=== PATIENT | female | born 1950 | race Caucasian/White ===

== ENCOUNTER 2020-05-01 10:58 | Emergency (ER) | payer OTHER ==
[~2020-05-01] VITALS: Ht 152.4 cm; Wt 65.9 kg
[~2020-05-01 10:58] MED LIST: AMLO10TA PO; ASPI-1093 PO; GLIP10TA3 PO; LEVO500T6 PO; LISI-487 PO; METF1000 PO; SIMV40TA1 PO
[2020-05-01 11:13] VITALS: BP 187/72
--- NOTE | 2020-05-01 11:25 | NUR ---
Patient ambulated to bed 6. RN evaluating patient at bedside.
--- NOTE | 2020-05-01 11:29 | NUR ---
VA: RIGHT EYE 20/100, LEFT EYE 20/70, BOTH EYE 20/70
[2020-05-01] MEDS ORDERED: TETRACAINE HCL/PF 0.5% OPTH 4 ML BTL OP ONE (11:35)
[2020-05-01] MEDS ORDERED: ACYCLOVIR 700 MG in NACL 0.9% 100 ML IV ONE (11:35)
[2020-05-01] MEDS ORDERED: FLUORESCEIN OPTH STRIP 1 MG OP ONE (11:35)
--- NOTE | 2020-05-01 11:35 | NUR ---
69 y/o female brought in by daughter from home with c/c rash and blister to left face. Pt's daughter is repair mechanic and states that on 04/29, a rash developed to the left side of her face and progressively worsen with blisters. Blisters noted under left eye, left of ear, and on upper lip. Pt's daughter states she was concern because it was causing her pain. Pt states associated dizziness. Pt denies headache, shortness of breath, nausea/vomiting, blurry vision, fever/chills, cold like symptoms. Pt placed onto diagnostic cardiac sonographer. Bed locked at lowest position, side rails x 1, call light in reach. VA: RIGHT EYE 20/100, LEFT EYE 20/70, BOTH EYE 20/70 PMH: DM, HTN, ARTHRITIS, HEART SURGERY 2011 & 2013, RIGHT LOWER LEG BLOOD CLOT MED: INSULIN, BLOOD THINER NKA
--- NOTE | 2020-05-01 11:45 | NUR ---
Dr. Banks is evaluating the patient at bedside.
[2020-05-01] MEDS ORDERED: ACYCLOVIR 500 MG VIAL IV ONE (11:58)
--- NOTE | 2020-05-01 12:10 | NUR ---
Lab at bedside
--- NOTE | 2020-05-01 12:11 | NUR ---
Alison swab collected, walked to lab and handed to kait Miranda tech.
[2020-05-01 12:20] LABS: BASOPHILS # (AUTO) 0.1 K/uL (0.00-0.22); EOSINOPHILS # (AUTO) 0.2 K/uL (0-0.4); EOSINOPHILS % (AUTO) 3.2 % (0.0-4.0); HEMATOCRIT 43.1 % (36-48); HEMOGLOBIN 14.6 g/dL (12.0-16.0); LYMPHOCYTES # (AUTO) 1.5 K/uL (2.5-16.5); MEAN CORPUSCULAR HEMOGLOBIN 29 pg (27-31); MEAN CORPUSCULAR HGB CONC 34 g/dL (33-37); MEAN CORPUSCULAR VOLUME 86.2 fL (80-94); MONOCYTES # (AUTO) 0.7 K/uL (0.8-1.0); NEUTROPHILS # (AUTO) 3.5 K/uL (1.8-7.7); NEUTROPHILS % (AUTO) 58.8 % (42.2-75.2); PLATELET COUNT (AUTO) 176 K/uL (140-450); RED BLOOD CELL COUNT(AUTO) 4.99 MIL/uL (4.20-5.40); RED CELL DISTRIBUTION WIDTH 13.6 % (11.6-13.7); WHITE BLOOD COUNT (AUTO) 5.9 K/uL (4.8-10.8)
[2020-05-01 12:56] LABS: ANION GAP 13.3 (8-16); CARBON DIOXIDE 27.4 mmol/L (21-32); CREATININE 0.9 mg/dL (0.6-1.3); POTASSIUM 4.7 mmol/L (3.5-5.1); TOTAL BILIRUBIN 0.5 mg/dL (0.0-1.0)
--- NOTE | 2020-05-01 13:54 | NUR ---
Spoke with Mikel from [facility] and answered screening questions. Mikel advised to have family understand that this will be a continuity of care and will require follow-up appointments, and not a one time visit. Daughter advised and translated for mom.
--- NOTE | 2020-05-01 14:35 | NUR ---
Pt resting in position of comfort. monitor technician in place. Bed locked in lowest position, side rails x 1, call light in reach. Daughter at bedside.
--- NOTE | 2020-05-01 15:00 | NUR ---
Consent signed for transport to [facility] to ED. Daughter at bedside to acknowledge/translate consent form. Signature obtained.
--- NOTE | 2020-05-01 15:20 | NUR ---
Report given to EDOUARD Robins via telephone. Advised of [facility]'s ETA of 1600.
--- NOTE | 2020-05-01 15:25 | NUR ---
Pt requested information of visitation policy at [facility]. Spoke with bilingual inside sales representative and advised no visitors allowed. Daughter/pt made aware.
[2020-05-01] MEDS ORDERED: MORPHINE SULFATE 4 MG/ML SYR IVP ONE (15:40)
[2020-05-01] MEDS ORDERED: ONDANSETRON 4 MG/2 ML VIAL IVP ONE (15:40)
--- NOTE | 2020-05-01 15:40 | NUR ---
Pt's daughter states pain 10/10, request for pain meds. ERMD made aware and placed orders.
--- NOTE | 2020-05-01 15:42 | NUR ---
Inputted incorrect quantity amount from [employer] for Morphine 4mg/mL while dispensing medication. Incorrect quantity inputted: 18. Correct quantity: 17. Charge nurse notified.
--- NOTE | 2020-05-01 15:52 | NUR ---
Pt resting in position of comfort. Pain medication given per orders. color television console monitor in place. Bed locked in lowest position, side rails x 1, call light in reach. Daughter at bedside.
--- NOTE | 2020-05-01 16:06 | NUR ---
Pt resting in semi-fowlers in position of comfort. Daughter at bedside translating. Pt states pain 3/10 and no nausea at this time. All pt needs met at this time. desk monitor in place. Bed locked in lowest position, side rails x 1, call light in reach.
--- NOTE | 2020-05-01 17:07 | NUR ---
[facility] at bedside to transport the patient to [facility] ER.
[2020-05-01 17:10] VITALS: BP 147/60
--- NOTE | 2020-05-01 17:10 | NUR ---
Patient to be transferred to [facility] ED. Is being transferred due to higher level of care. Receiving facility has accepting physician and available space. ER physician has signed transfer form. Patient or responsible green party has agreed to transfer and signed form. Patient belongings inventoried and will be sent with patient. Copy of nursing notes, lab reports, EKG, Physicians Orders and X-rays to be sent with patient. Report called to Julienne at receiving facility. [facility] ambulance service has been called for transfer. ETA is 1 hour.
== END 2020-05-01 17:10 | disposition designated cancer center or children's hospital (05) ==
LOC: MED 10:58
DX: B02.30 Zoster ocular disease, unspecified (principal); Z20.828 Contact with and (suspected) exposure to other viral communicable diseases; E11.9 Type 2 diabetes mellitus without complications; I10 Essential (primary) hypertension; E07.9 Disorder of thyroid, unspecified; Z79.899 Other long term (current) drug therapy
CPT/HCPCS: 36415; 80053; 82948; 85025; 87426; 96365; 96375; 99285; J0133; J2270; J2405

== ENCOUNTER 2020-06-15 18:19 | Emergency (ER) | payer OTHER ==
[~2020-06-15] VITALS: Ht 152.4 cm; Wt 68.2 kg
[2020-06-15 18:40] VITALS: BP 147/55
[2020-06-15] MEDS ORDERED: cefTRIAXone 1,000 MG in DEXT 5% MINI-BAG PLUS 50 ML IV ONE (18:50)
--- NOTE | 2020-06-15 18:54 | NUR ---
URINE & COVID MARCEL SWAB COLLECTED.
--- NOTE | 2020-06-15 19:11 | NUR ---
MARCEL AND UA SAMPLE GIVEN TO NURSING HOME ASSISTANT ADMINISTRATOR.
--- NOTE | 2020-06-15 19:13 | NUR ---
PATIENT RETURNED FROM XRAY VIA W/C. LAB DRAWING BLOOD IN A.
[2020-06-15 19:32] LABS: APPEARANCE,URINE CLEAR (CLEAR); BILIRUBIN,URINE NEGATIVE (NEGATIVE); BLOOD, URINE NEGATIVE (NEGATIVE); COLOR,URINE YELLOW (YELLOW); LEUKOCYTE ESTERASE ,URINE TRACE (NEGATIVE); NITRITE, URINE NEGATIVE (NEGATIVE); UGLUCOSE 2+ (NEGATIVE)
[2020-06-15 19:33] LABS: BASOPHILS # (AUTO) 0.1 K/uL (0.00-0.22); BASOPHILS % (AUTO) 0.9 % (0.0-2.0); EOSINOPHILS # (AUTO) 0.2 K/uL (0-0.4); EOSINOPHILS % (AUTO) 3.2 % (0.0-4.0); HEMATOCRIT 35.8 % (36-48); HEMOGLOBIN 12.3 g/dL (12.0-16.0); LYMPHOCYTES # (AUTO) 1.7 K/uL (2.5-16.5); LYMPHOCYTES % (AUTO) 23.1 % (20.5-51.1); MEAN CORPUSCULAR HEMOGLOBIN 31 pg (27-31); MEAN CORPUSCULAR HGB CONC 35 g/dL (33-37); MEAN CORPUSCULAR VOLUME 88.4 fL (80-94); MONOCYTES # (AUTO) 0.4 K/uL (0.8-1.0); NEUTROPHILS # (AUTO) 4.8 K/uL (1.8-7.7); NEUTROPHILS % (AUTO) 66.8 % (42.2-75.2); PLATELET COUNT (AUTO) 264 K/uL (140-450); RED BLOOD CELL COUNT(AUTO) 4.05 MIL/uL (4.20-5.40); RED CELL DISTRIBUTION WIDTH 15.1 % (11.6-13.7); WHITE BLOOD COUNT (AUTO) 7.2 K/uL (4.8-10.8)
--- NOTE | 2020-06-15 19:43 | NUR ---
PATIENT AMBULATED FROM LOBBY TO BED 7.
[2020-06-15 19:52] LABS: ALBUMIN 3.8 g/dL (3.4-5.0); ANION GAP 12.7 (8-16); CARBON DIOXIDE 28.3 mmol/L (21-32); TOTAL BILIRUBIN 0.3 mg/dL (0.0-1.0)
[2020-06-15] MEDS ORDERED: MORPHINE SULFATE 4 MG/ML SYR IM ONE (20:00)
[2020-06-15 20:01] LABS: RBC,URINE 0-5 /HPF (0-5)
[2020-06-15] MEDS ORDERED: GABA300C PO (21:05)
[2020-06-15 21:11] VITALS: BP 141/56
--- NOTE | 2020-06-15 21:11 | NUR ---
Patient discharged with v/s stable. Written and verbal after care instructions given and explained. Patient alert, oriented and verbalized understanding of instructions. Ambulatory with steady gait. All questions addressed prior to discharge. ID band removed. Patient advised to follow up with PMD. Rx of GABAPENTIN given. Patient educated on indication of medication including possible reaction and side effects. Opportunity to ask questions provided and answered.
== END 2020-06-15 21:11 | disposition home or self-care (01) ==
LOC: MED 18:19
DX: I70.211 Atherosclerosis of native arteries of extremities with intermittent claudication, right leg (principal); E11.9 Type 2 diabetes mellitus without complications; I10 Essential (primary) hypertension; E07.9 Disorder of thyroid, unspecified; Z79.899 Other long term (current) drug therapy; Z20.822 Contact with and (suspected) exposure to COVID-19
CPT/HCPCS: 36415; 71045; 73630; 80053; 81001; 83880; 84484; 85025; 87040; 87086; 87426; 93005; 96372; 99285; J2270

== ENCOUNTER 2020-11-16 17:12 | Emergency (ER) | payer OTHER ==
[~2020-11-16] VITALS: Ht 157.5 cm; Wt 63.5 kg
[~2020-11-16 17:12] MED LIST changes: +GABA300C PO
[2020-11-16 17:46] VITALS: BP 143/47
--- NOTE | 2020-11-16 17:52 | NUR ---
PT TO LOBBY.
--- NOTE | 2020-11-16 18:50 | NUR ---
PT WALKED TO BED 7.
--- NOTE | 2020-11-16 19:01 | NUR ---
69 YEAR OLD FEMALE COMPLAINS OF DIZZINESS X 1 WEEK. PT DENIES SYNCOPE EPISODE. PT DENIES N/V/D. PT AOX4, BREATHING EVEN AND UNLABORED, SKIN WARM AND DRY. BED IN LOWEST POSITION, LOCKED, BED RAIL UPX1. PMH - HTN, DM2, HLD, CAD ALLERGIES - NKA
[2020-11-16] MEDS ORDERED: NACL 0.9% 1,000 ML IV ONE (19:05)
[2020-11-16 19:21] LABS: BASOPHILS # (AUTO) 0.1 K/uL (0.00-0.22); BASOPHILS % (AUTO) 0.8 % (0.0-2.0); EOSINOPHILS # (AUTO) 0.2 K/uL (0-0.4); EOSINOPHILS % (AUTO) 2.8 % (0.0-4.0); HEMATOCRIT 20.2 % (36-48); LYMPHOCYTES # (AUTO) 2.3 K/uL (2.5-16.5); LYMPHOCYTES % (AUTO) 35.1 % (20.5-51.1); MEAN CORPUSCULAR HEMOGLOBIN 23 pg (27-31); MEAN CORPUSCULAR HGB CONC 31 g/dL (33-37); MEAN CORPUSCULAR VOLUME 73.6 fL (80-94); MONOCYTES # (AUTO) 0.6 K/uL (0.8-1.0); MONOCYTES % (AUTO) 8.6 % (1.7-9.3); NEUTROPHILS # (AUTO) 3.4 K/uL (1.8-7.7); NEUTROPHILS % (AUTO) 52.7 % (42.2-75.2); PLATELET COUNT (AUTO) 239 K/uL (140-450); RED BLOOD CELL COUNT(AUTO) 2.74 MIL/uL (4.20-5.40); WHITE BLOOD COUNT (AUTO) 6.4 K/uL (4.8-10.8)
--- NOTE | 2020-11-16 19:25 | NUR ---
RECEIVED REPORT FROM EDOUARD PARIS. TRANSFER OF CARE AT THIS TIME.
[2020-11-16 19:35] LABS: HEMOGLOBIN 6.3 g/dL (12.0-16.0)
--- NOTE | 2020-11-16 19:42 | NUR ---
PATIENT TAKEN TO RAD VIA W/C.
[2020-11-16 19:47] LABS: ALBUMIN 3.3 g/dL (3.4-5.0); CARBON DIOXIDE 27.2 mmol/L (21-32); CREATININE 0.8 mg/dL (0.6-1.3); POTASSIUM 4.2 mmol/L (3.5-5.1); TOTAL BILIRUBIN 0.2 mg/dL (0.0-1.0)
[2020-11-16 20:08] LABS: PROTHROMBIN TIME 9.2 secs (10.8-13.4)
--- NOTE | 2020-11-16 20:35 | NUR ---
LINDSEY BELCHER AT BEDSIDE FOR ULTRASOUND IV PLACEMENT
--- NOTE | 2020-11-16 21:15 | NUR ---
PT. TAKEN TO CT VIA W/C
--- NOTE | 2020-11-16 22:25 | NUR ---
Consent signed per patient agreeing to administration of blood. Blood has been type and crossmatched. Blood sent from blood bank. Information on unit of blood checked against patient wristband at bedside by two nurses. All information matches. Patient or responsible alliance party informed of potential complications associated with blood transfusion. Informed of possible transfusion reaction symptoms. Aware of need to notify nurse at once of itching, shortness of breath, flushing, feeling of impending doom, or other symptoms not previously present. Vital signs taken within 5 minutes prior to initiation of transfusion. RN will remain with patient for first 15 minutes of transfusion at which time vital signs will be re-assessed.
--- NOTE | 2020-11-16 22:37 | NUR ---
MARCEL SWAB COLLECTED AND TAKEN TO LAB.
--- NOTE | 2020-11-16 23:12 | NUR ---
PT. LAYING COMFORTABLY IN SUPINE POSITION, VOICES NO COMPLAINTS AT THIS TIME. WILL CONTINUE TO MONITOR
--- NOTE | 2020-11-17 01:45 | NUR ---
PER LINDSEY MERCHANT, D/C ORTHOSTATIC VITAL SIGNS AT THIS TIME.
--- NOTE | 2020-11-17 02:55 | NUR ---
Patient to be transferred to [facility]. Is being transferred due to HIGHER LEVEL OF CARE. Receiving facility has accepting physician and available space. ER physician has signed transfer form. Patient or responsible libertarian has agreed to transfer and signed form. Patient belongings inventoried and will be sent with patient. Copy of nursing notes, lab reports, EKG, Physicians Orders and X-rays to be sent with patient. Report called to EDOUARD SAUER at receiving facility. ambulance service has been called for transfer. ETA is 2 HRS.
--- NOTE | 2020-11-17 02:55 | NUR ---
CALLED REPORT TO EDOUARD SAUER (TELEMETRY UNIT STATION 2) WITH ACCEPTING DR. NATHAN AND ADMITTING DIAGNOSIS OF BRAIN MASS AND SYMPTOMATIC ANEMIA. PT. WILL GO TO ROOM 329B. ETA FOR TRANSPORT IS 2 HRS.
[2020-11-17] MEDS ORDERED: CARV3.122 PO (06:24)
[2020-11-17] MEDS ORDERED: APIX5TAB PO (06:24)
[2020-11-17] MEDS ORDERED: LOSA100T1 PO (06:24)
[2020-11-17] MEDS ORDERED: ATOR10TA PO (06:24)
[2020-11-17] MEDS ORDERED: CLOP300T2 PO (06:24)
--- NOTE | 2020-11-17 07:12 | NUR ---
REPORT GIVEN TO EDOUARD RUIZ AND EDOUARD MONTANEZ. TRANSFER OF CARE AT THIS TIME.
--- NOTE | 2020-11-17 07:13 | NUR ---
report and continuation of care given by gurinder coleman.
--- NOTE | 2020-11-17 07:15 | NUR ---
patient observed in bed awake and alert, rr even and unlabored. spoke with daughter in law bev regarding transfer to [facility].
--- NOTE | 2020-11-17 07:44 | NUR ---
SAID currently on the phone with daughter in law bev regarding transfer and diagnosis.
--- NOTE | 2020-11-17 08:31 | NUR ---
pt currently in bed resting comfortably, rr even and unlabored.
--- NOTE | 2020-11-17 09:14 | NUR ---
PT IN BED AWAKE AND ALERT, VSS. WILL CONTINUE TO MONITOR.
--- NOTE | 2020-11-17 09:18 | NUR ---
[facility] at bedside for tranport
[2020-11-17 09:26] VITALS: BP 138/40
--- NOTE | 2020-11-17 09:28 | NUR ---
Patient to be transferred to [facility] ER. Is being transferred due to . Receiving facility has accepting physician and available space. ER physician has signed transfer form. Patient or responsible democrat has agreed to transfer and signed form. Patient belongings inventoried and will be sent with patient. Copy of nursing notes, lab reports, EKG, Physicians Orders and X-rays to be sent with patient. Report called to at receiving facility. ambulance service has been called for transfer. ETA is .
== END 2020-11-17 09:28 | disposition short-term general hospital (02) ==
LOC: MED 17:12
DX: D64.9 Anemia, unspecified (principal); Z20.822 Contact with and (suspected) exposure to COVID-19; G93.9 Disorder of brain, unspecified; E11.65 Type 2 diabetes mellitus with hyperglycemia; E86.0 Dehydration; I10 Essential (primary) hypertension; F07.9 Unspecified personality and behavioral disorder due to known physiological condition; Z79.84 Long term (current) use of oral hypoglycemic drugs; Z79.899 Other long term (current) drug therapy; Z98.890 Other specified postprocedural states
CPT/HCPCS: 36415; 70450; 70496; 71045; 80053; 83880; 84484; 85025; 85610; 85730; 86886; 86900; 86901; 86920; 87426; 93005; 96360; 96361; 99285; J7030; P9016

== ENCOUNTER 2021-04-01 11:06 | Emergency (ER) | payer OTHER ==
[~2021-04-01] VITALS: Ht 151.1 cm; Wt 76.2 kg
[~2021-04-01 11:06] MED LIST changes: +APIX5TAB PO; +ATOR10TA PO; +CARV3.122 PO; +CLOP300T2 PO; -GABA300C PO; -GLIP10TA3 PO; -LISI-487 PO; +LOSA100T1 PO; -SIMV40TA1 PO
[2021-04-01 11:48] VITALS: BP 233/88
[2021-04-01 14:07] VITALS: BP 109/70
--- NOTE | 2021-04-01 14:08 | NUR ---
Patient discharged with v/s stable. Written and verbal after care instructions given and explained. Patient verbalized understanding. Ambulatory with steady gait. All questions addressed prior to discharge. Advised to follow up with PMD.
--- NOTE | 2021-04-03 14:07 | NUR ---
RECEIVED COVID + RESULT, ASKED FOR COPY TO BE SENT TO LEAVE IN INFECTION CONTROL MAILBOX.
== END 2021-04-01 14:08 | disposition home or self-care (01) ==
LOC: MED 11:06
DX: J06.9 Acute upper respiratory infection, unspecified (principal); Z20.822 Contact with and (suspected) exposure to COVID-19; I10 Essential (primary) hypertension; E78.5 Hyperlipidemia, unspecified; E07.9 Disorder of thyroid, unspecified; E11.9 Type 2 diabetes mellitus without complications
CPT/HCPCS: 99283; U0003

== ENCOUNTER 2021-11-30 10:10 | Emergency (ER) | payer OTHER ==
[~2021-11-30] VITALS: Ht 152.4 cm; Wt 74.8 kg
[~2021-11-30 10:10] MED LIST changes: +METF-1274 PO; -METF1000 PO
[2021-11-30 10:14] VITALS: BP 179/77
--- NOTE | 2021-11-30 10:17 | NUR ---
AMBULATED TO BED 12
--- NOTE | 2021-11-30 10:42 | NUR ---
DR ROBERTS AT BEDSIDE FOR EVAL
--- NOTE | 2021-11-30 10:43 | NUR ---
70 Y/O FEMALE BIB SELF C/O OF FACIAL SWELLING, NOTED TONSILS +2, RED IN COLOR, [id number]. BILATERAL LUNG SOUNDS CLEAR, DENIES ANY PAIN AT THE MOMENT, DENIES ANY BLURRING OF VISION, NO SWELLING NOTED ON THE LIPS AND TONGUE. SPEAKING IN FULL SENTENCES. PER PT SHE WOKE UP WITH THE SWELLING. DENIES ANY ORAL INTAKE TODAY NKA PMH: DM, HTN, CAD
[2021-11-30] MEDS ORDERED: KETOROLAC 60 MG/2 ML VIAL IM ONE (10:45)
[2021-11-30 11:00] LABS: BASOPHILS # (AUTO) 0.1 K/uL (0.00-0.22); BASOPHILS % (AUTO) 1.1 % (0.0-2.0); EOSINOPHILS # (AUTO) 0.2 K/uL (0-0.4); EOSINOPHILS % (AUTO) 2.9 % (0.0-4.0); HEMATOCRIT 29.5 % (36-48); HEMOGLOBIN 10.1 g/dL (12.0-16.0); LYMPHOCYTES # (AUTO) 1.5 K/uL (2.5-16.5); LYMPHOCYTES % (AUTO) 18.3 % (20.5-51.1); MEAN CORPUSCULAR HEMOGLOBIN 30 pg (27-31); MEAN CORPUSCULAR HGB CONC 34 g/dL (33-37); MEAN CORPUSCULAR VOLUME 87.4 fL (80-94); MONOCYTES # (AUTO) 0.7 K/uL (0.8-1.0); MONOCYTES % (AUTO) 8.8 % (1.7-9.3); NEUTROPHILS # (AUTO) 5.5 K/uL (1.8-7.7); NEUTROPHILS % (AUTO) 68.9 % (42.2-75.2); PLATELET COUNT (AUTO) 265 K/uL (140-450); RED BLOOD CELL COUNT(AUTO) 3.38 MIL/uL (4.20-5.40); RED CELL DISTRIBUTION WIDTH 16.5 % (11.6-13.7)
[2021-11-30 11:18] LABS: ANION GAP 12.2 (8-16); POTASSIUM 4.2 mmol/L (3.5-5.1)
[2021-11-30] MEDS ORDERED: PRED20TA5 PO (12:14)
[2021-11-30] MEDS ORDERED: IBUP-2213 PO (12:14)
--- NOTE | 2021-11-30 12:21 | NUR ---
PER DR ROBERTS PT OK TO DISCHARGE WITH HR 48, PT STATES THAT THEY HAVE A HISTORY
[2021-11-30 12:22] VITALS: BP 139/61
--- NOTE | 2021-11-30 12:22 | NUR ---
Patient discharged with v/s stable. Written and verbal after care instructions given and explained. Patient alert, oriented and verbalized understanding of instructions. Ambulatory with steady gait. All questions addressed prior to discharge. ID band removed. Patient advised to follow up with PMD. Rx of PREDNISONE, MOTRIN given. Patient educated on indication of medication including possible reaction and side effects. Opportunity to ask questions provided and answered.
== END 2021-11-30 12:22 | disposition home or self-care (01) ==
LOC: MED 10:10
DX: R22.0 Localized swelling, mass and lump, head (principal); I10 Essential (primary) hypertension; E11.9 Type 2 diabetes mellitus without complications; E03.9 Hypothyroidism, unspecified; I25.10 Atherosclerotic heart disease of native coronary artery without angina pectoris; Z79.4 Long term (current) use of insulin; Z79.899 Other long term (current) drug therapy; Z98.890 Other specified postprocedural states
CPT/HCPCS: 36415; 80048; 81002; 84443; 85025; 96372; 99283; J1885